=== PATIENT | male | born 1970 | race Two or more races ===

== ENCOUNTER 2023-06-10 19:35 | Emergency (ER) | payer MEDICAID, OTHER ==
[~2023-06-10] VITALS: Ht 165.1 cm; Wt 88.0 kg
[2023-06-10] MEDS ORDERED: FLUORESCEIN SOD OPTH TEST STRIP RIGHTEYE ONE ×2 (20:30→21:00)
[2023-06-10] MEDS ORDERED: TETRACAINE HCL 0.5% OPTH(EYE) SOLN 4ML RIGHTEYE ONE ×2 (20:30→21:00)
[2023-06-10 21:04] VITALS: BP 136/85; PULSE 61; RESP 18; TEMP 97.8; O2SAT 99
[2023-06-10] MEDS ORDERED: TETANUS-DIPTH-ACEL PERTUSSIS 0.5ML SYR Tdap IM ONE (22:30)
[2023-06-10] MEDS ORDERED: CIPR0.3S67 OP (22:30)
== END 2023-06-10 22:37 | disposition home or self-care (01) ==
LOC: ER 19:35
DX: S05.01XA Injury of conjunctiva and corneal abrasion without foreign body, right eye, initial encounter (principal); I10 Essential (primary) hypertension; E11.9 Type 2 diabetes mellitus without complications; Z79.899 Other long term (current) drug therapy; X58.XXXA Exposure to other specified factors, initial encounter; Y93.89 Activity, other specified; Y92.89 Other specified places as the place of occurrence of the external cause; Y99.8 Other external cause status
CPT/HCPCS: 70450; 70480